=== PATIENT | female | born 1995 | race African-American/Black ===

== ENCOUNTER 2020-07-27 00:43 | Emergency (ER) | payer SELFPAY ==
[~2020-07-27] VITALS: Ht 167.6 cm; Wt 101.6 kg
[2020-07-27 00:47] VITALS: BP_SYST 127
--- NOTE | 2020-07-27 00:51 | NUR ---
Placed in room 02 . Placed on ekg monitor, blood pressure machine and pulse oximeter. To gown for exam. Side rails up. Report given to JASON HERRON
--- NOTE | 2020-07-27 01:17 | NUR ---
ER Dr. CURRY at bedside examining patient.
[2020-07-27 01:20] LABS: BASOPHILS % (AUTO) 0.3 % (0.0-2.0); EOSINOPHILS # (AUTO) 0.3 K/uL (0.0-0.4); EOSINOPHILS % (AUTO) 2.3 % (0.0-4.0); HEMATOCRIT 38.6 % (36-48); HEMOGLOBIN 12.7 g/dL (12.0-16.0); LYMPHOCYTES # (AUTO) 2.2 K/uL (1.0-5.5); LYMPHOCYTES % (AUTO) 17.7 % (20.5-51.5); MEAN CORPUSCULAR HEMOGLOBIN 28 pg (27-31); MEAN CORPUSCULAR HGB CONC 33 % (32-36); MEAN CORPUSCULAR VOLUME 83 fL (79.0-98.0); MONOCYTES # (AUTO) 0.9 K/uL (0.0-1.0); MONOCYTES % (AUTO) 7.3 % (1.7-9.3); NEUTROPHILS # (AUTO) 8.8 K/uL (1.8-7.7); NEUTROPHILS % (AUTO) 72.4 % (40.0-70.0); PLATELET COUNT (AUTO) 342 K/uL (130-430); RED BLOOD CELL COUNT(AUTO) 4.63 MIL/uL (4.2-6.2); RED CELL DISTRIBUTION WIDTH 17.4 % (9.0-15.0); WHITE BLOOD COUNT (AUTO) 12.2 K/uL (4.8-10.8)
--- NOTE | 2020-07-27 01:21 | NUR ---
Pt BIBA to ED seeking eval for overdosing on Pot Edible Candies, No other complaints VSS no s/s of acute distress Resting on gurney rails up
[2020-07-27 01:29] LABS: ANION GAP 10 (5-15); CALCIUM 9.2 mg/dL (8.4-11.0); CHLORIDE 101 mmol/L (98-107); GLUCOSE 175 mg/dL (70-99); POTASSIUM 3.5 mmol/L (3.5-5.1); SODIUM SERUM 137 mmol/L (136-145); UREA NITROGEN, BLOOD 16 mg/dL (8-21)
[2020-07-27 01:43] LABS: ALANINE AMINOTRANSFERASE 13 U/L (12-78); ALBUMIN 3.6 g/dL (3.4-4.8); ASPARTATE AMINOTRANSFERASE 13 U/L (10-37); TOTAL BILIRUBIN 0.3 mg/dL (0.0-1.0)
[2020-07-27 01:45] LABS: ACETAMINOPHEN < 1 ug/mL (1-30); ALCOHOL, BLOOD < 3 mg/dL (<10); GFR AFRICAN AMERICAN 79 mL/min (>90); HCG,QUANTITATIVE 9 mIU/ML (0-6)
--- NOTE | 2020-07-27 02:31 | NUR ---
Pt remains in stable condition with VSS Resting on gurney rails up
--- NOTE | 2020-07-27 03:41 | NUR ---
Dr. Pastor bedside for pt re - eval and update
--- NOTE | 2020-07-27 04:40 | NUR ---
Pt continues to be resting comfortable on gurney rails up
--- NOTE | 2020-07-27 05:45 | NUR ---
Pt provided urine sample as well as changed to hospital gown, well tolerated
--- NOTE | 2020-07-27 06:59 | NUR ---
VSS no s/s of acute distress Resting on gurney rails up
[2020-07-27 07:08] LABS: BARBITURATE, URINE NEGATIVE (NEG <=200); BENZODIAZEPINE, URINE NEGATIVE (NEG <=150); CANNABINOID, URINE POSITIVE (NEG <=50); COCAINE, URINE NEGATIVE (NEG <=150); METHAMPHETAMINES SCREEN,URINE NEGATIVE (NEG <=500); OPIATE, URINE NEGATIVE (NEG <=100); PHENCYCLIDINE SCREEN,URINE NEGATIVE (NEG <=25); UR TRICYCLIC ANTIDEPRESSANTS NEGATIVE (NEG <=300); URINE AMPHETAMINE NEGATIVE (NEG <=500); URINE METHADONE NEGATIVE (NEG <=200); URINE OXYCODONE SCREEN NEGATIVE (NEG <=100); URINE PROPOXYPHENE SCREEN NEGATIVE (NEG <=300)
[2020-07-27 07:23] VITALS: BP_SYST 127
--- NOTE | 2020-07-27 07:25 | NUR ---
Patient given written and verbal discharge instructions and verbalizes understanding. ER MD discussed with patient the results and treatment provided. Patient in stable condition. ID arm band removed. IV catheter removed intact and dressing applied, no active bleeding. No prescriptions given. Patient educated on pain management and to follow up with PMD. Pain Scale 0. Opportunity for questions provided and answered. Medication side effect fact sheet provided.
== END 2020-07-27 07:25 | disposition home or self-care (01) ==
LOC: SED 00:43
DX: T40.7X1A Poisoning by cannabis (derivatives), accidental (unintentional), initial encounter (principal); Y92.89 Other specified places as the place of occurrence of the external cause
CPT/HCPCS: 36415; 80053; 80307; 84702; 85025; 93005; 99284; G0480; G0481; G0482